=== PATIENT | female | born 1985 | race Caucasian/White ===

== ENCOUNTER 2021-12-01 12:59 | Outpatient (CLI) | payer OTHER, SELFPAY ==
[2021-12-01 13:10] LABS: Hematocrit 42.9 % (35.0-49.0); Mean Corpuscular HGB Conc 32.6 g/dL (32.0-36.0); Mean Corpuscular Hemoglobin 34.2 pg (27.0-31.0); Mean Corpuscular Volume 104.9 fL (78.0-102.0); Mean Platelet Volume 10.3 fl (9.2-11.8); Platelet Count Result 203 K/mm3 (150-420); Red Blood Count 4.09 M/mm3 (4.20-5.40); Red Cell Distribution Width 11.7 % (11.6-14.4)
[2021-12-01 14:01] LABS: Albumin Level 4.1 g/dL (3.4-5.0); Blood Urea Nitrogen 9 mg/dL (7-18); Calcium 8.6 mg/dL (8.5-10.1); Estimated Glomerular Filt Rate > 60; Thyroid Stimulating Hormone Reflex 0.71 u/IU/mL (0.36-3.74)
[2021-12-01 14:12] LABS: Alanine Aminotransferase 14 U/L (14-59); Alkaline Phosphatase 69 U/L (46-116); Anion Gap 4 mmol/L (8-16); Aspartate Amino Transferase < 10 U/L (15-37); Bilirubin,Total 0.5 mg/dL (0.00-1.00); Carbon Dioxide 30 mmol/L (21-32); Chloride 102 mmol/L (98-108); Cholesterol 157 mg/dL (0-200); Glucose 78 mg/dL (70-99); HDL Direct 71 mg/dL (40-60); LDL Cholesterol Calculated 64 mg/dL (<130); Osmolality Calculated 279 mOsm/kg (285-295); Potassium 3.6 mmol/L (3.5-5.1); Sodium 136 mmol/L (136-145); Total Protein 6.5 g/dL (6.4-8.2); Triglycerides 108 mg/dL (0-150)
== END 2021-12-01 13:00 | disposition home or self-care (01) ==
LOC: CHSLAB 13:01
PROVIDERS: PCP Family Medicine; Visit Provider Family Medicine
DX: F31.9 Bipolar disorder, unspecified (principal); E11.9 Type 2 diabetes mellitus without complications
CPT/HCPCS: 36415; 80053; 80061; 84443; 85027

== ENCOUNTER 2021-12-14 13:46 | Outpatient (NON) | payer OTHER, SELFPAY | END 2021-12-14 13:47 | disposition home or self-care (01) | LOC: CHSLAB 13:51 | PROVIDERS: Visit Provider Nurse Practitioner Family | DX: Z12.4 Encounter for screening for malignant neoplasm of cervix (principal); Z13.89 Encounter for screening for other disorder | CPT/HCPCS: 87491; 87591; 87624; 88175; G0145 ==

== ENCOUNTER 2023-12-07 18:15 | Outpatient (CLI) | payer OTHER, SELFPAY ==
[2023-12-07 18:27] LABS: Basophils Absolute Auto 0.07 K/mm3 (0.00-0.10); Basophils Percent Auto 0.9 % (0.0-1.0); Eosinophils Absolute Auto 0.13 K/mm3 (0.02-0.50); Eosinophils Percent Auto 1.6 % (1.0-6.0); Hematocrit 44.9 % (35.0-49.0); Hemoglobin 15.1 g/dL (12.0-15.0); Immature Granulocyte Absolute 0.03 K/mm3 (0.00-0.00); Immature Granulocyte Percent A 0.4 % (0.0-0.0); Lymphocytes Absolute Auto 3.43 K/mm3 (1.10-4.50); Lymphocytes Percent Auto 42.3 % (18.0-42.0); Mean Corpuscular HGB Conc 33.6 g/dL (32-36); Mean Corpuscular Hemoglobin 34.4 pg (27.0-31.0); Mean Corpuscular Volume 102.3 fL (78.0-102.0); Mean Platelet Volume 9.8 fl (9.2-11.8); Monocytes Absolute Auto 0.79 K/mm3 (0.10-0.90); Monocytes Percent Auto 9.8 % (2.0-11.0); Neutrophils Absolute Auto 3.65 K/mm3 (1.70-7.20); Platelet Count Result 263 K/mm3 (150-420); Red Blood Count 4.39 M/mm3 (4.20-5.40); Red Cell Distribution Width 12.2 % (11.6-14.4); White Blood Count 8.1 K/mm3 (4.8-10.8)
[2023-12-07 20:53] LABS: Alanine Aminotransferase 246 U/L (14-59); Alkaline Phosphatase 109 U/L (46-116); Anion Gap 10 mmol/L (4-12); Aspartate Amino Transferase 43 U/L (15-37); Bilirubin,Total 0.6 mg/dL (0.00-1.00); Blood Urea Nitrogen 13 mg/dL (7-18); Calcium 9.1 mg/dL (8.5-10.1); Carbon Dioxide 28 mmol/L (21-32); Chloride 101 mmol/L (98-108); Cholesterol 235 mg/dL (0-200); Estimated Glomerular Filt Rate > 60; Glucose 101 mg/dL (70-99); HDL Direct 75 mg/dL (40-60); LDL Cholesterol Calculated 135 mg/dL (<130); Osmolality Calculated 288 mOsm/kg (285-295); Sodium 139 mmol/L (136-145); Total Protein 7.1 g/dL (6.4-8.2); Triglycerides 124 mg/dL (0-150)
[2023-12-07 22:59] LABS: Thyroid Stimulating Hormone Reflex 1.85 u/IU/mL (0.36-3.74)
[2023-12-09 10:28] LABS: Hepatitis A Antibody IgM NON-REACTIVE (NON-REACTIVE); Hepatitis B Core Antibody NON-REACTIVE (NON-REACTIVE); Hepatitis B Surface Antigen NON-REACTIVE (NON-REACTIVE); Hepatitis C Virus Antibody REACTIVE (NON-REACTIVE)
[2023-12-13 07:44] LABS: Hepatitis C Viral RNA PCR 550000 IU/mL (NOT DETECTED)
[2023-12-18 09:57] LABS: Hepatitis C Additional Testing YES
== END 2023-12-07 18:16 | disposition home or self-care (01) ==
PROVIDERS: PCP Family Medicine; Visit Provider Family Medicine
DX: F41.1 Generalized anxiety disorder (principal); E03.9 Hypothyroidism, unspecified
CPT/HCPCS: 36415; 80053; 80061; 80074; 84443; 85025; 87522

== ENCOUNTER 2023-12-13 08:29 | Outpatient (CLI) | payer OTHER, SELFPAY ==
--- NOTE | ~2023-12-13 | US_ITS ---
Limited Abdominal Sonogram: Real-time sonographic imaging of the right upper quadrant was performed. Clinical History: Elevated liver transaminase levels Findings: The liver appears normal with no evidence of mass lesion or bile duct dilatation. Main por lalo vein demonstrates normal direction of flow. The gallbladder is partially distended, and appears n ormal with no evidence of gallstone. Minimal gallbladder wall thickening may be due to underdistentio n. Probable minimal sludge/debris. The common bile duct measures 3 mm. The visualized pancreas, aort a, and IVC are unremarkable. Impression: Probable minimal gallbladder sludge/debris. Minimal gallbladder wall thickening is felt to be most li carson related to underdistended state. Reviewed, dictated and finalized at location M. Impression: Probable minimal gallbladder sludge/debris. Minimal gallbladder wall thickening is felt to be most likely related to underdistended state.
== END 2023-12-13 08:30 | disposition home or self-care (01) ==
PROVIDERS: PCP Family Medicine; Visit Provider Family Medicine
DX: R74.01 Elevation of levels of liver transaminase levels (principal)
CPT/HCPCS: 76705

== ENCOUNTER 2024-01-30 10:02 | Outpatient (CLI) | payer OTHER, SELFPAY ==
[2024-01-30 10:23] LABS: Basophils Absolute Auto 0.05 K/mm3 (0.00-0.10); Basophils Percent Auto 0.7 % (0.0-1.0); Eosinophils Absolute Auto 0.27 K/mm3 (0.02-0.50); Eosinophils Percent Auto 3.7 % (1.0-6.0); Hematocrit 45.6 % (35.0-49.0); Hemoglobin 15.6 g/dL (12.0-15.0); Immature Granulocyte Absolute 0.04 K/mm3 (0.00-0.00); Immature Granulocyte Percent A 0.5 % (0.0-0.0); Lymphocytes Absolute Auto 2.92 K/mm3 (1.10-4.50); Lymphocytes Percent Auto 40.1 % (18.0-42.0); Mean Corpuscular HGB Conc 34.2 g/dL (32-36); Mean Corpuscular Hemoglobin 34.3 pg (27.0-31.0); Mean Corpuscular Volume 100.2 fL (78.0-102.0); Mean Platelet Volume 9.8 fl (9.2-11.8); Monocytes Absolute Auto 0.63 K/mm3 (0.10-0.90); Monocytes Percent Auto 8.7 % (2.0-11.0); Neutrophils Absolute Auto 3.37 K/mm3 (1.70-7.20); Neutrophils Percent Auto 46.3 % (50.0-70.0); Platelet Count Result 261 K/mm3 (150-420); Red Blood Count 4.55 M/mm3 (4.20-5.40); Red Cell Distribution Width 11.7 % (11.6-14.4); White Blood Count 7.3 K/mm3 (4.8-10.8)
[2024-01-30 10:38] LABS: INR 0.9; Prothrombin Time 9.6 Seconds (9.50-12.1)
[2024-01-30 11:31] LABS: Alanine Aminotransferase 72 U/L (14-59); Albumin Level 3.6 g/dL (3.4-5.0); Alkaline Phosphatase 102 U/L (46-116); Anion Gap 10 mmol/L (4-12); Aspartate Amino Transferase 15 U/L (15-37); Bilirubin Direct 0.1 mg/dL (0-0.2); Bilirubin,Total 0.3 mg/dL (0.00-1.00); Blood Urea Nitrogen 14 mg/dL (7-18); Calcium 9.1 mg/dL (8.5-10.1); Carbon Dioxide 28 mmol/L (21-32); Chloride 100 mmol/L (98-108); Estimated Glomerular Filt Rate > 60; Ferritin 119 ng/mL (8-252); Folic Acid 13.4 ng/mL (8.6->20); Glucose 105 mg/dL (70-99); Iron 123 ug/dL (50-170); Osmolality Calculated 286 mOsm/kg (285-295); Percent Iron Saturation 32 % (12-57); Potassium 4.4 mmol/L (3.5-5.1); Sodium 138 mmol/L (136-145); Total Protein 6.7 g/dL (6.4-8.2); Vitamin B12 769 pg/mL (193-986)
== END 2024-01-30 10:03 | disposition home or self-care (01) ==
PROVIDERS: PCP Family Medicine; Visit Provider Nurse Practitioner Family
DX: B19.20 Unspecified viral hepatitis C without hepatic coma (principal)
CPT/HCPCS: 36415; 80048; 80076; 82607; 82728; 82746; 83540; 83550; 85025; 85610; 87522

== ENCOUNTER 2024-05-28 14:44 | Outpatient (CLI) | payer OTHER, SELFPAY ==
[2024-05-28 15:18] LABS: Hematocrit 46.9 % (35.0-49.0); Hemoglobin 15.3 g/dL (12.0-15.0); Mean Corpuscular HGB Conc 32.6 g/dL (32-36); Mean Corpuscular Hemoglobin 32.8 pg (27.0-31.0); Mean Corpuscular Volume 100.6 fL (78.0-102.0); Mean Platelet Volume 10.1 fl (9.2-11.8); Platelet Count Result 230 K/mm3 (150-420); Red Blood Count 4.66 M/mm3 (4.20-5.40); Red Cell Distribution Width 11.6 % (11.6-14.4); White Blood Count 15.1 K/mm3 (4.8-10.8)
[2024-05-28 15:54] LABS: Alanine Aminotransferase 20 U/L (14-59); Albumin Level 4.4 g/dL (3.4-5.0); Alkaline Phosphatase 107 U/L (46-116); Anion Gap 12 mmol/L (4-12); Aspartate Amino Transferase < 10 U/L (15-37); Bilirubin,Total 0.3 mg/dL (0.00-1.00); Blood Urea Nitrogen 13 mg/dL (7-18); Calcium 9.6 mg/dL (8.5-10.1); Carbon Dioxide 27 mmol/L (21-32); Chloride 103 mmol/L (98-108); Estimated Glomerular Filt Rate > 60; Glucose 88 mg/dL (70-99); Osmolality Calculated 293 mOsm/kg (285-295); Potassium 4.4 mmol/L (3.5-5.1); Sodium 142 mmol/L (136-145); Total Protein 7.6 g/dL (6.4-8.2)
[2024-05-30 15:13] LABS: Hepatitis C RNA, Quant PCR <15 NOT DETECTED IU/mL (NOT DETECTED)
== END 2024-05-28 14:45 | disposition home or self-care (01) ==
PROVIDERS: PCP Family Medicine; Visit Provider Nurse Practitioner Family
DX: B18.2 Chronic viral hepatitis C (principal)
CPT/HCPCS: 36415; 80053; 85027; 87522